=== PATIENT | male | born 1975 | race Caucasian/White ===

== ENCOUNTER 2022-04-27 07:19 | Emergency (ER) | payer BC ==
[2022-04-27] MEDS ORDERED: Lactated Ringers 1,000 ML IV STA ×2 (07:33→08:43)
[2022-04-27] MEDS ORDERED: Ketorolac 30 MG/ML SDV IVPUSH ONE (07:33)
[2022-04-27 08:16] LABS: CARBON DIOXIDE,CO2 25.2 mmol/L (21.0-32.0); POTASSIUM,K 3.7 mmol/L (3.5-5.1)
[2022-04-27 08:37] LABS: CORONAVIRUS COVID-19 NAA POSITIVE (NEGATIVE); INFLUENZA A NAA NEGATIVE (NEGATIVE); INFLUENZA B NAA NEGATIVE (NEGATIVE); RESPIRATORY SYNCYTIAL VIR NAA NEGATIVE (NEGATIVE)
[2022-04-27] MEDS ORDERED: Acetaminophen 500 MG Tab PO ONE (08:42)
== END 2022-04-27 09:49 | disposition home or self-care (01) ==
LOC: MW.ED 07:19
DX: U07.1 COVID-19 (principal); E66.9 Obesity, unspecified; Z68.35 Body mass index [BMI] 35.0-35.9, adult
CPT/HCPCS: 0241U; 36415; 71045; 80053; 83605; 83735; 85025; 85610; 87040; 93005; 96361; 96374; 99284; A9270; J1885; J7120